=== PATIENT | male | born 1985 | race Caucasian/White ===

== ENCOUNTER → 2017-11-14 | Outpatient (CLI) | payer OTHER | LOC: M.ULTRA 14:30 | DX: R59.0 Localized enlarged lymph nodes (principal); R91.8 Other nonspecific abnormal finding of lung field; N20.0 Calculus of kidney; J98.11 Atelectasis; R16.1 Splenomegaly, not elsewhere classified ==

== ENCOUNTER → 2017-11-20 | Outpatient (CLI) | payer OTHER ==
[2017-11-20 13:20] LABS: ALBUMIN 3.4 g/dL (3.4-5.0); CALCIUM 11.5 mg/dL (8.5-10.1); POTASSIUM 3.2 mmol/L (3.5-5.1); TOTAL BILIRUBIN 0.5 mg/dL (<0.1-1.0); TOTAL PROTEIN 8.3 g/dL (6.4-8.2)
[2017-11-21 02:07] LABS: COMPLEMENT-C4 17 mg/dL (14-44)
[2017-11-21 18:09] LABS: HEPATITIS B SURFACE AG Negative (Negative)
[2017-11-24 09:08] LABS: ANA INTERPRETATION Negative (Negative); GLOMERULR BASEM MEMBRN AB 11 units (0-20)
[2017-11-25 06:08] LABS: M-SPIKE Not Observed g/dL (Not Observed)
== END ==
LOC: M.LAB 12:27
PROVIDERS: Internal Medicine Nephrology
DX: N18.3 Chronic kidney disease, stage 3 (moderate) (principal)

== ENCOUNTER → 2017-11-24 | Outpatient (CLI) | payer OTHER ==
[2017-11-24 11:41] LABS: CREATININE 1.9 mg/dL (0.6-1.3)
== END ==
LOC: M.LAB 10:36
PROVIDERS: Internal Medicine Nephrology
DX: N18.3 Chronic kidney disease, stage 3 (moderate) (principal)

== ENCOUNTER → 2017-12-31 | Outpatient (CLI) | payer OTHER | LOC: M.CT 12:38 | DX: N20.0 Calculus of kidney (principal); R16.1 Splenomegaly, not elsewhere classified ==

== ENCOUNTER → 2018-03-25 | Outpatient (CLI) | payer OTHER | LOC: M.MRI 07:30 | DX: H46.9 Unspecified optic neuritis (principal) ==